=== PATIENT | female | born 1980 ===

== ENCOUNTER 2021-01-30 13:35 | Inpatient (IN) | payer OTHER ==
[~2021-01-30] VITALS: Ht 160 cm; Wt 68.5 kg
[2021-01-30] MEDS ORDERED: PERCOCET 5-3251 EACH (13:48)
[2021-01-30] MEDS ORDERED: NEURONTIN800 MG (13:48)
[2021-01-30] MEDS ORDERED: PEPCID AC20 MG (13:48)
== END 2021-02-06 09:00 | disposition home or self-care (01) | DRG 948 ==
LOC: ER 13:35 → MEDJ 21:54 → SEC-K 21:54 → MEDJ 23:22
PROVIDERS: ADMIT Internal Medicine; ATTEND Internal Medicine
PROC: BW40ZZZ Ultrasonography of Abdomen (ICD-10-PCS; 2021-01-31)
PROC: B24BZZZ Ultrasonography of Heart with Aorta (ICD-10-PCS; 2021-01-31)
PROC: BW2110Z Computerized Tomography (CT Scan) of Abdomen and Pelvis using Low Osmolar Contrast, Unenhanced and Enhanced (ICD-10-PCS; 2021-02-01)
PROC: 0W9G3ZX Drainage of Peritoneal Cavity, Percutaneous Approach, Diagnostic (ICD-10-PCS; principal; 2021-02-04)
DX: R18.8 Other ascites (principal); C18.9 Malignant neoplasm of colon, unspecified; C78.7 Secondary malignant neoplasm of liver and intrahepatic bile duct; C78.00 Secondary malignant neoplasm of unspecified lung; J45.909 Unspecified asthma, uncomplicated; E16.1 Other hypoglycemia; G62.9 Polyneuropathy, unspecified